=== PATIENT | female | born 2005 | race Two or more races ===

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

== ENCOUNTER 2023-05-17 04:37 | Emergency (ER) | payer OTHER ==
[~2023-05-17] VITALS: Ht 152.4 cm; Wt 72.6 kg
[2023-05-17 06:16] LABS: HEMATOCRIT 29.8 % (36.0-45.00); HEMOGLOBIN 9.1 g/dL (12.0-15.00); MEAN CELL VOLUME 70.3 fL (80.00-100.00); MEAN CORPUSCULAR HEMOGLOBIN 21.5 pg (27.00-32.0); MEAN CORPUSCULAR HGB CONC 30.6 g/dl (32.0-36.0); PLATELET COUNT 418 K/uL (150-450); RED BLOOD COUNT 4.24 M/uL (4.00-6.00); RED CELL DISTRIBUTION WIDTH 17.8 % (11.5-14.5)
[2023-05-17 06:21] LABS: PH,URINE 7.5 (5.0-8.0); URINE APPEARANCE Cloudy; URINE BILIRRUBIN Negative (NEGATIVE); URINE BLOOD Negative; URINE COLOR Yellow; URINE GLUCOSE Negative (NEGATIVE); URINE LEUKOCYTE Small; URINE NITRATE Negative; URINE PROTEIN Negative (NEGATIVE); URINE UROBILINOGEN 0.2 E.U./dl
[2023-05-17 06:24] LABS: URINE BACTERIA 437.2 uL (0.0-1933); URINE RBC 3.5 uL (0.0-20.8); URINE WBC 25.8 uL (0.0-23.2)
[2023-05-17 06:27] LABS: CALCIUM 8.7 mg/dL (8.5-10.1); CREATININE SERUM 0.76 mg/dL (0.55-1.02); GFR 98.04; POTASSIUM 3.86 mEq/L (3.5-5.1)
== END 2023-05-17 11:29 | disposition home or self-care (01) ==
LOC: ER 04:37
DX: N39.0 Urinary tract infection, site not specified (principal)

== ENCOUNTER 2023-09-26 16:55 | Emergency (ER) | payer OTHER ==
[~2023-09-26] VITALS: Ht 175.3 cm; Wt 84.4 kg
[2023-09-26] MEDS ORDERED: SERTRALINE20 MG/1 ML PO (17:20)
[2023-09-26] MEDS ORDERED: FAMOTIDINE/PF 20 MG/2 ML VIAL IV STA (18:20)
[2023-09-26 19:36] LABS: HEMATOCRIT 34.2 % (36.0-45.00); HEMOGLOBIN 10.8 g/dL (12.0-15.00); MEAN CORPUSCULAR HEMOGLOBIN 22.1 pg (27.00-32.0); MEAN CORPUSCULAR HGB CONC 31.6 g/dl (32.0-36.0); PLATELET COUNT 374 K/uL (150-450); RED BLOOD COUNT 4.88 M/uL (4.00-6.00); RED CELL DISTRIBUTION WIDTH 18.6 % (11.5-14.5)
== END 2023-09-26 19:51 | disposition home or self-care (01) ==
LOC: ER 16:55
PROVIDERS: General Practice
DX: K29.70 Gastritis, unspecified, without bleeding (principal); K21.9 Gastro-esophageal reflux disease without esophagitis; F17.210 Nicotine dependence, cigarettes, uncomplicated

== ENCOUNTER 2024-11-01 23:02 | Emergency (ER) | payer OTHER ==
[~2024-11-01] VITALS: Ht 172.7 cm; Wt 65.8 kg
[~2024-11-01 23:02] MED LIST changes: +SERTRALINE20 MG/1 ML PO
[2024-11-01] MEDS ORDERED: IRON236 MG (23:51)
[2024-11-02] MEDS ORDERED: ORPHENADRINE CITRATE 30 MG/ML AMPUL IM STA (03:14)
[2024-11-02] MEDS ORDERED: ORPHENADRINE CITRATE 30 MG/ML AMPUL ONE (03:22)
[2024-11-02] MEDS ORDERED: NORFLEX100MG PO (04:21)
== END 2024-11-02 04:22 | disposition home or self-care (01) ==
LOC: ER 23:05
DX: S16.1XXA Strain of muscle, fascia and tendon at neck level, initial encounter (principal); X58.XXXA Exposure to other specified factors, initial encounter; Y93.89 Activity, other specified; Y92.89 Other specified places as the place of occurrence of the external cause; Y99.8 Other external cause status; S29.9XXA Unspecified injury of thorax, initial encounter; F41.9 Anxiety disorder, unspecified; R07.89 Other chest pain

== ENCOUNTER 2024-11-14 21:58 | Emergency (ER) | payer OTHER ==
[~2024-11-14] VITALS: Ht 175.3 cm; Wt 76.2 kg
[~2024-11-14 21:58] MED LIST changes: +IRON236 MG; +NORFLEX100MG PO
[2024-11-14] MEDS ORDERED: ACETAMINOPHEN 500 MG GEL..CAP PO STA (22:40)
[2024-11-14] MEDS ORDERED: ACETAMINOPHEN 500 MG GEL..CAP PO ONE (22:45)
[2024-11-14 23:20] LABS: HEMOGLOBIN 12.1 g/dL (12.0-15.00); MEAN CORPUSCULAR HEMOGLOBIN 30.4 pg (27.00-32.0); MEAN CORPUSCULAR HGB CONC 34.5 g/dl (32.0-36.0); PLATELET COUNT 308 K/uL (150-450); RED BLOOD COUNT 3.98 M/uL (4.00-6.00); RED CELL DISTRIBUTION WIDTH 14.5 % (11.5-14.5)
[2024-11-14 23:47] LABS: GFR 152.23; POTASSIUM 3.72 mEq/L (3.5-5.1)
[2024-11-14 23:49] LABS: CREATININE SERUM 0.51 mg/dL (0.55-1.02)
[2024-11-15 02:51] LABS: URINE APPEARANCE Clear; URINE BILIRRUBIN Negative (NEGATIVE); URINE BLOOD Negative; URINE COLOR Yellow; URINE GLUCOSE Negative (NEGATIVE); URINE KETONE Negative (NEGATIVE); URINE LEUKOCYTE Negative; URINE NITRATE Negative; URINE PROTEIN Negative (NEGATIVE); URINE UROBILINOGEN 0.2 E.U./dl
[2024-11-15 02:55] LABS: URINE BACTERIA 151.7 uL (0.0-1933); URINE EPITHELIAL CELLS 4.2 uL (0.0-38.8); URINE WBC 4.4 uL (0.0-23.2)
[2024-11-15 03:13] LABS: URINE RBC 1.9 uL (0.0-20.8)
== END 2024-11-15 04:09 | disposition home or self-care (01) ==
LOC: ER 21:59
PROVIDERS: General Practice
DX: Z34.90 Encounter for supervision of normal pregnancy, unspecified, unspecified trimester (principal); Z3A.11 11 weeks gestation of pregnancy; R10.2 Pelvic and perineal pain

== ENCOUNTER 2024-12-05 14:29 | Emergency (ER) | payer OTHER ==
[~2024-12-05] VITALS: Ht 175.3 cm; Wt 72.6 kg
[2024-12-05] MEDS ORDERED: FAMOTIDINE/PF 20 MG/2 ML VIAL IV ONE (15:30)
[2024-12-05] MEDS ORDERED: 0.9 % SODIUM CHLORIDE 500 ML IV ONE (15:30)
[2024-12-05] MEDS ORDERED: FAMOTIDINE/PF 20 MG/2 ML VIAL ONE (15:41)
[2024-12-05 15:59] LABS: HEMATOCRIT 38.4 % (36.0-45.00); HEMOGLOBIN 13.3 g/dL (12.0-15.00); MEAN CELL VOLUME 89.7 fL (80.00-100.00); MEAN CORPUSCULAR HGB CONC 34.5 g/dl (32.0-36.0); PLATELET COUNT 341 K/uL (150-450); RED BLOOD COUNT 4.28 M/uL (4.00-6.00)
[2024-12-05 16:31] LABS: ALBUMIN 3.4 gm/dL (3.4-5.0); BILIRUBIN TOTAL 0.32 mg/dL (0.3-1.2); CALCIUM 9.2 mg/dL (8.5-10.1); CREATININE SERUM 0.51 mg/dL (0.55-1.02); GFR 152.23; GLOBULINA 3.6 G/DL (2.4-3.5); POTASSIUM 4.19 mEq/L (3.5-5.1)
[2024-12-05 16:42] LABS: COVID-19 AG NEGATIVE (NEGATIVE)
[2024-12-05 16:57] LABS: INFLUENZA A AG NEGATIVE (NEGATIVE)
[2024-12-05 17:35] LABS: PH,URINE 6.5 (5.0-8.0); URINE APPEARANCE Clear; URINE BILIRRUBIN Negative (NEGATIVE); URINE BLOOD Negative; URINE COLOR Yellow; URINE GLUCOSE Negative (NEGATIVE); URINE KETONE Negative (NEGATIVE); URINE LEUKOCYTE Trace; URINE NITRATE Negative; URINE PROTEIN Negative (NEGATIVE); URINE UROBILINOGEN 0.2 E.U./dl
[2024-12-05 17:39] LABS: URINE BACTERIA 424.6 uL (0.0-1933); URINE EPITHELIAL CELLS 15.9 uL (0.0-38.8); URINE WBC 17.2 uL (0.0-23.2)
[2024-12-05 17:41] LABS: URINE RBC 0.4 uL (0.0-20.8)
[2024-12-05] MEDS ORDERED: PEPCID AC20 MG PO (19:44)
== END 2024-12-05 19:53 ==
LOC: ER 14:29
PROVIDERS: General Practice
DX: O26.899 Other specified pregnancy related conditions, unspecified trimester (principal); K92.89 Other specified diseases of the digestive system; Z3A.17 17 weeks gestation of pregnancy; Z91.018 Allergy to other foods; K29.70 Gastritis, unspecified, without bleeding; D64.89 Other specified anemias; Z20.822 Contact with and (suspected) exposure to COVID-19
CPT/HCPCS: 36415; 76700; 76805; 76819; 96365; 96366; 99284; J3490; J7042

== ENCOUNTER 2024-12-14 14:54 | Emergency (ER) | payer OTHER ==
[~2024-12-14] VITALS: Ht 172.7 cm; Wt 80.3 kg
[~2024-12-14 14:54] MED LIST changes: +PEPCID AC20 MG PO
[2024-12-14] MEDS ORDERED: PRENATABS FA T1 EACH (16:01)
[2024-12-14 16:38] LABS: COVID-19 AG NEGATIVE (NEGATIVE)
[2024-12-14 16:39] LABS: INFLUENZA A AG NEGATIVE (NEGATIVE)
== END 2024-12-14 17:06 | disposition home or self-care (01) ==
LOC: ER 15:21
PROVIDERS: General Practice
DX: Z34.90 Encounter for supervision of normal pregnancy, unspecified, unspecified trimester (principal); Z3A.16 16 weeks gestation of pregnancy; J06.9 Acute upper respiratory infection, unspecified; R05.9 Cough, unspecified; Z20.822 Contact with and (suspected) exposure to COVID-19; Z91.018 Allergy to other foods

== ENCOUNTER → 2025-01-03 13:53 | Outpatient (CLI) | payer OTHER ==
[~2025-01-03 13:53] MED LIST changes: +PRENATABS FA T1 EACH
== END | disposition home or self-care (01) ==
LOC: PRENATAL 13:53
PROVIDERS: ATTEND Obstetrics & Gynecology Maternal & Fetal Medicine
DX: O44.00 Complete placenta previa NOS or without hemorrhage, unspecified trimester (principal); O28.3 Abnormal ultrasonic finding on antenatal screening of mother; Z3A.20 20 weeks gestation of pregnancy

== ENCOUNTER 2025-03-08 15:16 | Outpatient (CLI) | payer OTHER | END 2025-03-08 15:17 | disposition home or self-care (01) | LOC: PRENATAL 15:16 | PROVIDERS: ATTEND Obstetrics & Gynecology Maternal & Fetal Medicine | DX: O26.849 Uterine size-date discrepancy, unspecified trimester (principal); O36.8199 Decreased fetal movements, unspecified trimester, other fetus; O28.3 Abnormal ultrasonic finding on antenatal screening of mother; Z3A.28 28 weeks gestation of pregnancy ==

== ENCOUNTER 2025-03-27 22:51 | Outpatient (CLI) | payer OTHER ==
[~2025-03-27] VITALS: Ht 172.7 cm; Wt 96.2 kg
[2025-03-27 21:31] VITALS: BP 117/72
[2025-03-27] MEDS ORDERED: RINGERS SOLUTION,LACTATED 1,000 ML IV SCH (23:15)
[2025-03-27 23:20] VITALS: BP 117/74; O2SAT 100
[2025-03-27 23:32] LABS: URINE APPEARANCE Clear; URINE BILIRRUBIN Negative (NEGATIVE); URINE BLOOD Negative; URINE COLOR Yellow; URINE GLUCOSE Negative (NEGATIVE); URINE KETONE Trace (NEGATIVE); URINE LEUKOCYTE Small; URINE NITRATE Negative; URINE PROTEIN Negative (NEGATIVE); URINE UROBILINOGEN 1.0 E.U./dl
[2025-03-27 23:35] LABS: URINE BACTERIA 1693.0 uL (0.0-1933); URINE EPITHELIAL CELLS 23.8 uL (0.0-38.8); URINE RBC 7.9 uL (0.0-20.8); URINE WBC 63.0 uL (0.0-23.2)
[2025-03-27 23:36] LABS: BASO % 0.3 % (0.1-1.2); EOS # 0.07 (0.04-0.54); EOS % 0.6 % (0.7-7.0); LYMPH # 2.78 (1.18-3.74); LYMPH % 24.9 % (19.3-53.1); MEAN PLATELET VOLUME 9.80 fl (9.4-12.4); MONO # 0.77 (0.24-0.82); MONO % 6.9 % (4.7-12.5); NEUT # 7.46 (1.56-6.13); NEUT % 66.8 % (34.0-71.1); RED CELL DISTRIBUTION WIDTH 11.8 % (11.6-14.4)
[2025-03-27 23:37] LABS: URINE CAST 0.14 uL (0.0-1.40)
[2025-03-27 23:52] LABS: INR < 0.93
[2025-03-27 23:57] LABS: ALT/SGPT 13.0 U/L (12-78); AST/SGOT 9.0 U/L (15-37); BILIRUBIN TOTAL 0.26 mg/dL (0.3-1.2); BUN CREA RATIO 13.0 (7.0-25.0); CREATININE SERUM 0.47 mg/dL (0.55-1.02); GFR 167.27; GLOBULINA 2.8 G/DL (2.4-3.5); GLUCOSE FASTING 76.0 mg/dL (65-100); OSMOLALITY SERUM 278.0 MOSM/KG (275-295)
[2025-03-28 06:15] VITALS: BP 111/71; O2SAT 100
[2025-03-28 09:34] VITALS: BP 111/71
== END 2025-03-28 10:34 | disposition home or self-care (01) ==
LOC: OBS/DEL 22:51
PROVIDERS: ATTEND Obstetrics & Gynecology
DX: O26.893 Other specified pregnancy related conditions, third trimester (principal); R10.2 Pelvic and perineal pain; Z3A.31 31 weeks gestation of pregnancy; O26.849 Uterine size-date discrepancy, unspecified trimester; O36.8130 Decreased fetal movements, third trimester, not applicable or unspecified; O26.899 Other specified pregnancy related conditions, unspecified trimester; O26.859 Spotting complicating pregnancy, unspecified trimester

== ENCOUNTER → 2025-03-27 | Emergency (ER) | payer OTHER ==
[~2025-03-27] VITALS: Ht 172.7 cm; Wt 96.2 kg
== END ==
LOC: ER 19:29
DX: O34.83 Maternal care for other abnormalities of pelvic organs, third trimester (principal); Z3A.31 31 weeks gestation of pregnancy; R10.2 Pelvic and perineal pain; Z88.6 Allergy status to analgesic agent; Z91.018 Allergy to other foods

== ENCOUNTER 2025-04-18 12:45 | Outpatient (CLI) | payer OTHER | END 2025-04-18 12:46 | disposition home or self-care (01) | LOC: PRENATAL 12:45 | PROVIDERS: ATTEND Obstetrics & Gynecology Maternal & Fetal Medicine | DX: O26.849 Uterine size-date discrepancy, unspecified trimester (principal); O36.8130 Decreased fetal movements, third trimester, not applicable or unspecified; Z3A.34 34 weeks gestation of pregnancy ==

== ENCOUNTER 2025-05-17 14:00 | Inpatient (IN) | payer OTHER ==
[~2025-05-17] VITALS: Ht 172.7 cm; Wt 3.6 kg
[2025-05-30] MEDS ORDERED: MISOPROSTOL 25 MCG/4 ML GEL.W.APPL VAG ONE ×2 (08:30→14:00)
[2025-05-30 08:33] VITALS: BP 121/74
[2025-05-30] MEDS ORDERED: FOLIC ACID0.4 MG PO (09:18)
[2025-05-30 09:33] LABS: BASO % 0.2 % (0.1-1.2); EOS # 0.05 (0.04-0.54); EOS % 0.5 % (0.7-7.0); LYMPH # 1.83 (1.18-3.74); LYMPH % 18.1 % (19.3-53.1); MEAN PLATELET VOLUME 9.80 fl (9.4-12.4); MONO # 0.77 (0.24-0.82); MONO % 7.6 % (4.7-12.5); NEUT # 7.37 (1.56-6.13); NEUT % 73.1 % (34.0-71.1); RED CELL DISTRIBUTION WIDTH 12.0 % (11.6-14.4)
[2025-05-30 09:39] LABS: URINE APPEARANCE Clear; URINE BILIRRUBIN Negative (NEGATIVE); URINE BLOOD Negative; URINE COLOR Yellow; URINE GLUCOSE Negative (NEGATIVE); URINE KETONE Negative (NEGATIVE); URINE LEUKOCYTE Large; URINE NITRATE Negative; URINE PROTEIN Negative (NEGATIVE); URINE UROBILINOGEN 1.0 E.U./dl
[2025-05-30 09:44] LABS: URINE BACTERIA 6163.2 uL (0.0-1933); URINE EPITHELIAL CELLS 25.9 uL (0.0-38.8); URINE RBC 12.7 uL (0.0-20.8); URINE WBC 255.0 uL (0.0-23.2)
[2025-05-30 09:55] LABS: URINE CAST 1.02 uL (0.0-1.40)
[2025-05-30 10:00] LABS: INR < 0.93
[2025-05-30 10:41] VITALS: BP 121/79
[2025-05-30 15:50] VITALS: BP 140/86
[2025-05-30 19:27] VITALS: BP 129/83
[2025-05-30] MEDS ORDERED: ERYTHROMYCIN BASE OPHT 1GM EACH TUBE OP ONE (20:26)
[2025-05-30] MEDS ORDERED: OXYTOCIN 10 UNITS/ML VIAL ONE (20:26)
[2025-05-31] MEDS ORDERED: MORPHINE SULFATE 4 MG/ML CARTRIDGE IV SCH (01:00)
[2025-05-31 04:29] VITALS: BP 139/87
[2025-05-31] MEDS ORDERED: OxyCODONE HCL 5 MG TABLET (ROXICODONE) PO SCH (05:00)
[2025-05-31 06:58] LABS: BASO % 0.1 % (0.1-1.2); EOS # 0.00 (0.04-0.54); EOS % 0.0 % (0.7-7.0); LYMPH # 1.18 (1.18-3.74); LYMPH % 8.0 % (19.3-53.1); MEAN PLATELET VOLUME 9.90 fl (9.4-12.4); MONO # 0.66 (0.24-0.82); MONO % 4.5 % (4.7-12.5); NEUT # 12.86 (1.56-6.13); NEUT % 87.0 % (34.0-71.1); RED CELL DISTRIBUTION WIDTH 11.9 % (11.6-14.4)
[2025-05-31] MEDS ORDERED: SIMETHICONE 125 MG CAPSULE PO SCH (08:00)
[2025-05-31] MEDS ORDERED: PNV,CALCIUM 72/IRON/FOLIC ACID 1 TAB TABLET PO SCH (08:00)
[2025-05-31] MEDS ORDERED: DOCUSATE SODIUM 100MG CAP PO SCH (08:00)
[2025-05-31 08:18] VITALS: BP 130/80
[2025-05-31 13:00] VITALS: BP 119/80
[2025-05-31 16:00] VITALS: BP 126/73
[2025-06-01 02:58] VITALS: BP 113/73
[2025-06-01 08:00] VITALS: BP 126/87
[2025-06-02 01:38] VITALS: BP 117/69
[2025-06-02 04:27] VITALS: BP 125/80
[2025-06-02 08:00] VITALS: BP 115/73
== END 2025-06-02 16:47 | disposition home or self-care (01) | DRG 788 ==
LOC: LDR 05-30 08:03 → OB/GYN 05-30 08:03 → LDR 05-30 13:37 → OB/GYN 05-30 14:51
PROVIDERS: ADMIT Obstetrics & Gynecology; ATTEND Obstetrics & Gynecology
PROC: 0UB10ZZ Excision of Left Ovary, Open Approach (ICD-10-PCS; 2025-05-30)
PROC: 3E033VJ Introduction of Other Hormone into Peripheral Vein, Percutaneous Approach (ICD-10-PCS; 2025-05-30)
PROC: 3E0P7VZ Introduction of Hormone into Female Reproductive, Via Natural or Artificial Opening (ICD-10-PCS; 2025-05-30)
PROC: 4A1HXCZ Monitoring of Products of Conception, Cardiac Rate, External Approach (ICD-10-PCS; 2025-05-30)
PROC: 10D00Z1 Extraction of Products of Conception, Low, Open Approach (ICD-10-PCS; principal; 2025-05-30 20:30)
DX: O33.8 Maternal care for disproportion of other origin (principal); O34.83 Maternal care for other abnormalities of pelvic organs, third trimester; D27.1 Benign neoplasm of left ovary; Z37.0 Single live birth; Z3A.40 40 weeks gestation of pregnancy

== ENCOUNTER 2025-06-08 15:26 | Emergency (ER) | payer OTHER ==
[~2025-06-08] VITALS: Ht 172.7 cm; Wt 90.7 kg
[~2025-06-08 15:26] MED LIST changes: +FOLIC ACID0.4 MG PO
[2025-06-08 16:26] VITALS: BP 118/81; O2SAT 99
== END 2025-06-08 20:32 | disposition left against medical advice (07) ==
LOC: ER 15:27
DX: O90.0 Disruption of cesarean delivery wound (principal); Z91.018 Allergy to other foods; Z88.6 Allergy status to analgesic agent; D64.89 Other specified anemias